=== PATIENT | female | born 1975 | race Caucasian/White ===

== ENCOUNTER 2021-07-30 01:10 | Inpatient (IN) ==
[2021-07-30] MEDS ORDERED: 0.9 % Sodium Chloride 1,000 ML IV ONE ×2 (01:16→03:43)
[2021-07-30] MEDS ORDERED: *HR* FentaNYL (PF) 100 MCG/2 ML VIAL IVP ONE ×3 (01:16→03:20)
[2021-07-30] MEDS ORDERED: Ondansetron 4 MG/2 ML VIAL IVP ONE (01:16)
[2021-07-30] MEDS ORDERED: Tdap (Boostrix) Vaccine 0.5 ML SYRINGE IM ONE (01:18)
[2021-07-30] MEDS ORDERED: CeFAZolin 2 GM/100 ML BAG IVPB ONE (01:22)
[2021-07-30 02:33] LABS: Basophils # 0.1 K/mcL (0.0-0.2); Basophils % 0.4 %; Eosinophils % 0.1 %; Hematocrit 38.1 % (35.3-44.9); Hemoglobin 12.5 g/dL (11.5-15.4); Immature Granulocytes % 0.6 % (0-4); Lymphocytes # 2.3 K/mcL (0.6-4.6); Lymphocytes % 16.7 %; Mean Corpuscular HGB Conc 32.8 g/dL (31.6-35.5); Mean Corpuscular Hemoglobin 29.2 pg (28.0-33.3); Monocytes # 0.9 K/mcL (0.0-1.3); Monocytes % 6.7 %; Neutrophils # 10.4 K/mcL (1.6-8.9); Platelet Count 344 K/mcL (140-400); Red Blood Count 4.28 M/mcL (3.82-4.97); Segmented Neutrophils % 75.5 %; White Blood Count 13.7 K/mcL (4.3-11.1)
[2021-07-30 02:44] LABS: Activated Partial Thrombo Time 27.7 Seconds (26.0-36.0)
[2021-07-30 02:50] LABS: Alanine Aminotransferase 12 Units/L (7-52); Albumin 3.8 g/dL (3.5-5.7); Albumin/Globulin Ratio 1.3 (1.1-2.2); Alkaline Phosphatase 56 Units/L (34-104); Aspartate Amino Transferase 15 Units/L (13-39); BUN/Creatinine Ratio 15 (6-26); Bilirubin,Total 0.4 mg/dL (0.3-1.0); Blood Urea Nitrogen 13 mg/dL (6-20); Calcium 8.7 mg/dL (8.6-10.3); Carbon Dioxide 22 mEq/L (23-29); Chloride 104 mEq/L (98-107); Glucose 99 mg/dL (70-105); Osmolality,Calculated 286 (280-300); Potassium 3.1 mEq/L (3.5-5.1); Sodium 138 mEq/L (136-145); Total Protein 6.8 g/dL (6.4-8.9); eGFR For African Americans > 60 (> 60); eGFR For Non-African Americans > 60 (> 60)
[2021-07-30] MEDS ORDERED: *HR* HYDROmorphone (PF) 1 MG/ML SYRINGE IVP ONE ×2 (03:42→09:55)
[2021-07-30] MEDS ORDERED: 0.9 % Sodium Chloride 1,000 ML ONE (03:44)
[2021-07-30] MEDS ORDERED: Naloxone 0.4 MG/ML INJ IVP PRN (04:34)
[2021-07-30] MEDS ORDERED: Ondansetron 4 MG/2 ML VIAL IVP PRN (04:34)
[2021-07-30] MEDS ORDERED: D5% in Water 1,000 ML IVC PRN (04:37)
[2021-07-30] MEDS ORDERED: Dextrose 4 GM Chewable Tablets PO PRN ×2 (04:37)
[2021-07-30] MEDS ORDERED: *HR* Dextrose 50 % in Water (Syg) 50 ML SYRINGE IVP PRN (04:37)
[2021-07-30 05:06] LABS: INR 1.1; Prothrombin Time 12.6 Seconds (9.4-12.1)
[2021-07-30] MEDS: *HR* HYDROmorphone (PF) 1 MG/ML SYRINGE IVP PRN ×2 (05:47→19:05)
[2021-07-30] MEDS: 0.9 % Sodium Chloride 1,000 ML IVC SCH ×2 (06:01→17:20)
[2021-07-30] MEDS: Ringers Solution, Lactated 1,000 ML IVC SCH (09:56)
[2021-07-30] MEDS ORDERED: Povidone-Iodine 45 ML, Sodium Chloride IRRigation 1,000 ML IR ONE (10:00)
[2021-07-30] MEDS ORDERED: TOTAL JOINT MIXTURE (100ML) INTRAART ONE (10:00)
[2021-07-30] MEDS ORDERED: Lidocaine HCL 4 ML Topical Solution (Laryng-O-Jet Kit Sterile Pak) TP ONE (10:06)
[2021-07-30] MEDS ORDERED: *HR* Midazolam HCl 2 MG/2 ML VIAL ONE (10:07)
[2021-07-30] MEDS ORDERED: *HR* Propofol 200 MG/20 ML VIAL IVP ONE ×2 (10:07→14:14)
[2021-07-30] MEDS ORDERED: *HR* FentaNYL (PF) 100 MCG/2 ML VIAL ONE (10:07)
[2021-07-30] MEDS ORDERED: Ondansetron 4 MG/2 ML VIAL ONE (10:09)
[2021-07-30] MEDS ORDERED: *HR* Rocuronium Bromide 50 MG/5 ML VIAL ONE (10:09)
[2021-07-30] MEDS ORDERED: Lidocaine -MPF 2% 2 ML VIAL ONE (10:09)
[2021-07-30] MEDS ORDERED: *HR* Succinylcholine 200 MG/10 ML VIAL IVP ONE (10:09)
[2021-07-30] MEDS ORDERED: Promethazine 6.25 MG in Water for inj. (sterile) 20 ML IVPB PRN (10:10)
[2021-07-30] MEDS ORDERED: *HR* Meperidine 25 MG/ML SYRINGE IVP PRN (10:10)
[2021-07-30] MEDS ORDERED: Albuterol 2.5 MG/3 ML NEBULIZER IH PRN (10:10)
[2021-07-30] MEDS ORDERED: *HR* HYDROmorphone PF 0.5 MG/0.5 ML SYRINGE IVP PRN (10:10)
[2021-07-30] MEDS ORDERED: Ketamine HCL *QUVA* 50mg (1mL) SYRINGE ONE (10:20)
[2021-07-30] MEDS ORDERED: Acetaminophen IV 1,000 MG/100 ML BAG IVPB ONE (10:20)
[2021-07-30] MEDS ORDERED: Tranexamic Acid 1,000 MG/10 ML VIAL ONE (10:22)
[2021-07-30] MEDS ORDERED: *HR* HYDROMORPHONE 2 MG/ML VIAL ONE ×3 (10:48→13:45)
[2021-07-30] MEDS ORDERED: Sugammadex Sodium 200 MG/2 ML VIAL IV ONE (11:03)
[2021-07-30] MEDS ORDERED: Ketorolac 30 MG/ML VIAL ONE (13:40)
[2021-07-30] MEDS: Insulin LISPRO 300 UNITS/3 ML VIAL SUBQ SCH ×3 (14:36→17:21)
[2021-07-30] MEDS: *HR* Enoxaparin 40 MG/0.4 ML SYRINGE SQ SCH (14:44)
[2021-07-30] MEDS: CeFAZolin 2 GM/100 ML BAG IVPB SCH (17:20)
[2021-07-30] MEDS ORDERED: *HR* OxyCODONE Immed Rel 5 MG TABLET PO PRN (21:46)
[2021-07-30] MEDS: *HR* OxyCODONE Immed Rel 5 MG TABLET PO PRN (22:03)
[2021-07-31] MEDS: *HR* HYDROmorphone (PF) 1 MG/ML SYRINGE IVP PRN ×5 (00:15→22:14)
[2021-07-31] MEDS: CeFAZolin 2 GM/100 ML BAG IVPB SCH ×4 (00:17→23:32)
[2021-07-31] MEDS: *HR* OxyCODONE Immed Rel 5 MG TABLET PO PRN ×4 (04:38→21:05)
[2021-07-31 07:26] LABS: Red Cell Distribution Width 13.1 % (11.5-14.5)
[2021-07-31 07:28] LABS: Basophils % 0.2 %; Red Blood Count 3.64 M/mcL (3.82-4.97)
[2021-07-31 07:37] LABS: Hemoglobin 10.5 g/dL (11.5-15.4); Mean Corpuscular Hemoglobin 28.8 pg (28.0-33.3)
[2021-07-31 07:38] LABS: Eosinophils # 0.1 K/mcL (0.0-0.6); Eosinophils % 0.5 %; Hematocrit 31.7 % (35.3-44.9); Immature Granulocytes % 0.4 % (0-4); Immature Platelets 2.9 % (1.1-6.1); Lymphocytes # 3.2 K/mcL (0.6-4.6); Lymphocytes % 24.3 %; Mean Corpuscular HGB Conc 33.1 g/dL (31.6-35.5); Mean Corpuscular Volume 87.1 fL (83.0-100.0); Mean Platelet Volume 10.2 fL (9.4-12.4); Monocytes # 1.2 K/mcL (0.0-1.3); Monocytes % 9.3 %; Platelet Count 217 K/mcL (140-400); Segmented Neutrophils % 65.3 %; White Blood Count 13.1 K/mcL (4.3-11.1)
[2021-07-31 07:40] LABS: Neutrophils # 8.6 K/mcL (1.6-8.9)
[2021-07-31 08:12] LABS: Estimated Average Glucose 108 mg/dl; Hemoglobin A1C 5.4 %
[2021-07-31] MEDS: Insulin LISPRO 300 UNITS/3 ML VIAL SUBQ SCH ×3 (08:29→17:55)
[2021-07-31 08:36] LABS: BUN/Creatinine Ratio 25 (6-26); Blood Urea Nitrogen 15 mg/dL (6-20); Calcium 8.6 mg/dL (8.6-10.3); Carbon Dioxide 24 mEq/L (23-29); Chloride 104 mEq/L (98-107); Glucose 109 mg/dL (70-105); Magnesium 1.6 mg/dL (1.6-2.6); Osmolality,Calculated 281 (280-300); Potassium 3.7 mEq/L (3.5-5.1); Sodium 135 mEq/L (136-145); eGFR For African Americans > 60 (> 60); eGFR For Non-African Americans > 60 (> 60)
[2021-07-31] MEDS: *HR* Enoxaparin 40 MG/0.4 ML SYRINGE SQ SCH (08:47)
[2021-07-31] MEDS ORDERED: Ketorolac 30 MG/ML VIAL IVP ONE (10:09)
[2021-07-31] MEDS: tiZANidine 4 MG TABLET PO SCH ×3 (10:19→20:03)
[2021-07-31] MEDS ORDERED: *HR* OxyCODONE/APAP 10/325 TABLET PO PRN (10:50)
[2021-07-31] MEDS ORDERED: Acetaminophen IV 1,000 MG/100 ML BAG IVPB SCH (12:00)
[2021-07-31] MEDS: Acetaminophen IV 1,000 MG/100 ML BAG IVPB SCH ×2 (12:10→20:04)
[2021-07-31] MEDS: Gabapentin 400 MG CAPSULE PO SCH ×2 (15:01→20:03)
[2021-07-31] MEDS: Ketorolac 30 MG/ML VIAL IVP SCH ×2 (17:54→23:34)
[2021-08-01] MEDS: *HR* HYDROmorphone (PF) 1 MG/ML SYRINGE IVP PRN ×3 (02:21→16:33)
[2021-08-01] MEDS: *HR* OxyCODONE Immed Rel 5 MG TABLET PO PRN ×3 (03:12→20:51)
[2021-08-01] MEDS: Acetaminophen IV 1,000 MG/100 ML BAG IVPB SCH ×3 (04:07→20:52)
[2021-08-01] MEDS: Ringers Solution, Lactated 1,000 ML IVC SCH (04:09)
[2021-08-01 05:07] LABS: Basophils % 0.3 %; Eosinophils # 0.3 K/mcL (0.0-0.6); Eosinophils % 3.9 %; Hematocrit 31.9 % (35.3-44.9); Hemoglobin 10.4 g/dL (11.5-15.4); Immature Granulocytes % 0.1 % (0-4); Lymphocytes # 2.8 K/mcL (0.6-4.6); Lymphocytes % 35.9 %; Mean Corpuscular HGB Conc 32.6 g/dL (31.6-35.5); Mean Corpuscular Hemoglobin 29.2 pg (28.0-33.3); Mean Corpuscular Volume 89.6 fL (83.0-100.0); Mean Platelet Volume 10.4 fL (9.4-12.4); Monocytes # 0.9 K/mcL (0.0-1.3); Monocytes % 10.9 %; Neutrophils # 3.8 K/mcL (1.6-8.9); Platelet Count 231 K/mcL (140-400); Red Blood Count 3.56 M/mcL (3.82-4.97); Red Cell Distribution Width 12.9 % (11.5-14.5); Segmented Neutrophils % 48.9 %; White Blood Count 7.8 K/mcL (4.3-11.1)
[2021-08-01 05:26] LABS: Alanine Aminotransferase 58 Units/L (7-52); Albumin 3.1 g/dL (3.5-5.7); Albumin/Globulin Ratio 1.2 (1.1-2.2); Alkaline Phosphatase 140 Units/L (34-104); Aspartate Amino Transferase 202 Units/L (13-39); BUN/Creatinine Ratio 18 (6-26); Bilirubin,Direct 0.6 mg/dL (0.0-0.2); Bilirubin,Indirect 0.7 mg/dL (0.0-1.0); Bilirubin,Total 1.3 mg/dL (0.3-1.0); Blood Urea Nitrogen 10 mg/dL (6-20); Calcium 8.2 mg/dL (8.6-10.3); Carbon Dioxide 25 mEq/L (23-29); Chloride 104 mEq/L (98-107); Globulin 2.6 g/dL (2.4-3.5); Glucose 100 mg/dL (70-105); Magnesium 1.7 mg/dL (1.6-2.6); Osmolality,Calculated 281 (280-300); Potassium 3.6 mEq/L (3.5-5.1); Sodium 136 mEq/L (136-145); Total Protein 5.7 g/dL (6.4-8.9); eGFR For African Americans > 60 (> 60); eGFR For Non-African Americans > 60 (> 60)
[2021-08-01] MEDS: Ketorolac 30 MG/ML VIAL IVP SCH ×4 (06:24→23:34)
[2021-08-01] MEDS: tiZANidine 4 MG TABLET PO SCH ×3 (08:05→20:51)
[2021-08-01] MEDS: Gabapentin 400 MG CAPSULE PO SCH ×3 (08:05→20:52)
[2021-08-01] MEDS: *HR* Enoxaparin 40 MG/0.4 ML SYRINGE SQ SCH (08:06)
[2021-08-01] MEDS: Insulin LISPRO 300 UNITS/3 ML VIAL SUBQ SCH ×3 (08:07→16:32)
[2021-08-01] MEDS: CeFAZolin 2 GM/100 ML BAG IVPB SCH ×3 (08:17→23:33)
[2021-08-02] MEDS: *HR* HYDROmorphone (PF) 1 MG/ML SYRINGE IVP PRN ×3 (01:57→16:00)
[2021-08-02] MEDS: Acetaminophen IV 1,000 MG/100 ML BAG IVPB SCH ×3 (04:16→21:56)
[2021-08-02 04:39] LABS: Alanine Aminotransferase 25 Units/L (7-52); Albumin 2.9 g/dL (3.5-5.7); Albumin/Globulin Ratio 1.1 (1.1-2.2); Alkaline Phosphatase 103 Units/L (34-104); Aspartate Amino Transferase 33 Units/L (13-39); BUN/Creatinine Ratio 18 (6-26); Bilirubin,Indirect 0.4 mg/dL (0.0-1.0); Bilirubin,Total 0.4 mg/dL (0.3-1.0); Blood Urea Nitrogen 10 mg/dL (6-20); Calcium 8.3 mg/dL (8.6-10.3); Carbon Dioxide 25 mEq/L (23-29); Chloride 106 mEq/L (98-107); Globulin 2.6 g/dL (2.4-3.5); Glucose 94 mg/dL (70-105); Magnesium 1.7 mg/dL (1.6-2.6); Osmolality,Calculated 283 (280-300); Potassium 3.8 mEq/L (3.5-5.1); Sodium 137 mEq/L (136-145); Total Protein 5.5 g/dL (6.4-8.9); eGFR For African Americans > 60 (> 60); eGFR For Non-African Americans > 60 (> 60)
[2021-08-02 04:41] LABS: Basophils % 0.4 %; Eosinophils # 0.5 K/mcL (0.0-0.6); Eosinophils % 5.3 %; Hematocrit 30.7 % (35.3-44.9); Immature Granulocytes % 0.3 % (0-4); Lymphocytes # 2.5 K/mcL (0.6-4.6); Lymphocytes % 27.7 %; Mean Corpuscular HGB Conc 32.6 g/dL (31.6-35.5); Mean Platelet Volume 10.9 fL (9.4-12.4); Monocytes # 0.8 K/mcL (0.0-1.3); Monocytes % 9.4 %; Neutrophils # 5.1 K/mcL (1.6-8.9); Platelet Count 240 K/mcL (140-400); Red Blood Count 3.45 M/mcL (3.82-4.97); Red Cell Distribution Width 12.8 % (11.5-14.5); Segmented Neutrophils % 56.9 %; White Blood Count 8.9 K/mcL (4.3-11.1)
[2021-08-02] MEDS: Ketorolac 30 MG/ML VIAL IVP SCH ×3 (06:37→19:18)
[2021-08-02] MEDS: Insulin LISPRO 300 UNITS/3 ML VIAL SUBQ SCH ×3 (07:36→19:55)
[2021-08-02] MEDS: tiZANidine 4 MG TABLET PO SCH ×3 (07:46→20:53)
[2021-08-02] MEDS: Gabapentin 400 MG CAPSULE PO SCH (07:46)
[2021-08-02] MEDS: *HR* Enoxaparin 40 MG/0.4 ML SYRINGE SQ SCH (07:46)
[2021-08-02] MEDS: Ringers Solution, Lactated 1,000 ML IVC SCH ×2 (07:47→11:16)
[2021-08-02] MEDS: CeFAZolin 2 GM/100 ML BAG IVPB SCH ×2 (07:51→16:36)
[2021-08-02] MEDS: *HR* OxyCODONE Immed Rel 5 MG TABLET PO PRN ×2 (09:09→21:10)
[2021-08-02] MEDS: Gabapentin 300 MG CAPSULE PO SCH ×2 (14:31→20:53)
[2021-08-03] MEDS: *HR* HYDROmorphone (PF) 1 MG/ML SYRINGE IVP PRN ×3 (00:01→14:48)
[2021-08-03] MEDS: CeFAZolin 2 GM/100 ML BAG IVPB SCH ×2 (00:02→11:39)
[2021-08-03] MEDS: Ketorolac 30 MG/ML VIAL IVP SCH ×4 (00:02→18:25)
[2021-08-03] MEDS: Acetaminophen IV 1,000 MG/100 ML BAG IVPB SCH ×3 (04:01→19:31)
[2021-08-03] MEDS: Insulin LISPRO 300 UNITS/3 ML VIAL SUBQ SCH ×3 (07:40→17:56)
[2021-08-03 07:42] LABS: Basophils % 0.4 %; Eosinophils # 0.4 K/mcL (0.0-0.6); Eosinophils % 5.6 %; Hematocrit 29.1 % (35.3-44.9); Hemoglobin 9.7 g/dL (11.5-15.4); Immature Granulocytes % 0.4 % (0-4); Lymphocytes # 2.2 K/mcL (0.6-4.6); Lymphocytes % 28.9 %; Mean Corpuscular HGB Conc 33.3 g/dL (31.6-35.5); Mean Corpuscular Hemoglobin 29.4 pg (28.0-33.3); Mean Corpuscular Volume 88.2 fL (83.0-100.0); Mean Platelet Volume 10.6 fL (9.4-12.4); Monocytes # 0.7 K/mcL (0.0-1.3); Neutrophils # 4.1 K/mcL (1.6-8.9); Platelet Count 278 K/mcL (140-400); Red Cell Distribution Width 12.6 % (11.5-14.5); Segmented Neutrophils % 55.7 %; White Blood Count 7.4 K/mcL (4.3-11.1)
[2021-08-03 08:03] LABS: BUN/Creatinine Ratio 18 (6-26); Blood Urea Nitrogen 10 mg/dL (6-20); Calcium 8.5 mg/dL (8.6-10.3); Carbon Dioxide 26 mEq/L (23-29); Chloride 105 mEq/L (98-107); Glucose 94 mg/dL (70-105); Magnesium 1.8 mg/dL (1.6-2.6); Osmolality,Calculated 285 (280-300); Potassium 3.5 mEq/L (3.5-5.1); Sodium 138 mEq/L (136-145); eGFR For African Americans > 60 (> 60); eGFR For Non-African Americans > 60 (> 60)
[2021-08-03 08:06] LABS: Albumin/Globulin Ratio 1.3 (1.1-2.2); Bilirubin,Indirect 0.3 mg/dL (0.0-1.0); Bilirubin,Total 0.3 mg/dL (0.3-1.0); Globulin 2.4 g/dL (2.4-3.5); Total Protein 5.4 g/dL (6.4-8.9)
[2021-08-03] MEDS: Gabapentin 300 MG CAPSULE PO SCH ×3 (08:35→19:30)
[2021-08-03] MEDS: *HR* OxyCODONE Immed Rel 5 MG TABLET PO PRN ×2 (08:35→19:30)
[2021-08-03] MEDS: tiZANidine 4 MG TABLET PO SCH ×3 (08:35→19:30)
[2021-08-03] MEDS: *HR* Enoxaparin 40 MG/0.4 ML SYRINGE SQ SCH (08:42)
[2021-08-03] MEDS: CeFAZolin 2,000 MG/120 ML BAG IVPB SCH (19:35)
[2021-08-04] MEDS: Ketorolac 30 MG/ML VIAL IVP SCH ×2 (00:06→06:00)
[2021-08-04] MEDS: *HR* HYDROmorphone (PF) 1 MG/ML SYRINGE IVP PRN (00:06)
[2021-08-04] MEDS: *HR* OxyCODONE Immed Rel 5 MG TABLET PO PRN ×2 (04:36→11:06)
[2021-08-04] MEDS: CeFAZolin 2,000 MG/120 ML BAG IVPB SCH (04:37)
[2021-08-04] MEDS: Acetaminophen IV 1,000 MG/100 ML BAG IVPB SCH (04:37)
[2021-08-04 07:52] VITALS: PULSE 73
[2021-08-04] MEDS: Insulin LISPRO 300 UNITS/3 ML VIAL SUBQ SCH (08:23)
[2021-08-04] MEDS: Gabapentin 300 MG CAPSULE PO SCH (08:36)
[2021-08-04] MEDS: tiZANidine 4 MG TABLET PO SCH (08:36)
[2021-08-04] MEDS: *HR* Enoxaparin 40 MG/0.4 ML SYRINGE SQ SCH (08:37)
[2021-08-04 10:24] LABS: Influenza A PCR Negative (Negative); Influenza B PCR Negative (Negative); Resp. Syncytial Virus PCR Negative (Negative)
[2021-08-04 10:48] LABS: SARS-CoV-2 by PCR (In House) Negative (Negative)
[2021-08-04 11:38] VITALS: BP 149/84; TEMP 97.6; O2SAT 99
== END 2021-08-04 12:37 | disposition other institution (70) | DRG 313 ==
LOC: 4WAOSI 01:10 → EMEROOARM 01:10 → SUATTDRO 04:16 → 4WAOSI 05:41 → SUATTDRO 08-01 15:06
PROVIDERS: ADMIT Internal Medicine; ATTEND Internal Medicine

== ENCOUNTER 2021-08-05 17:59 | Observation (INO) ==
[2021-08-05] MEDS ORDERED: *HR* OxyCODONE Immed Rel 5 MG TABLET PO STA (20:19)
[2021-08-05 20:39] LABS: Basophils # 0.1 K/mcL (0.0-0.2); Basophils % 0.5 %; Eosinophils # 0.4 K/mcL (0.0-0.6); Eosinophils % 4.1 %; Hemoglobin 10.1 g/dL (11.5-15.4); Immature Granulocytes % 0.4 % (0-4); Lymphocytes # 3.7 K/mcL (0.6-4.6); Lymphocytes % 39.1 %; Mean Corpuscular HGB Conc 32.6 g/dL (31.6-35.5); Mean Corpuscular Hemoglobin 29.8 pg (28.0-33.3); Mean Corpuscular Volume 91.4 fL (83.0-100.0); Mean Platelet Volume 10.2 fL (9.4-12.4); Monocytes # 0.9 K/mcL (0.0-1.3); Monocytes % 8.9 %; Neutrophils # 4.5 K/mcL (1.6-8.9); Platelet Count 328 K/mcL (140-400); Red Blood Count 3.39 M/mcL (3.82-4.97); Red Cell Distribution Width 12.8 % (11.5-14.5); White Blood Count 9.6 K/mcL (4.3-11.1)
[2021-08-05 21:00] LABS: Alanine Aminotransferase 6 Units/L (7-52); Albumin 3.3 g/dL (3.5-5.7); Albumin/Globulin Ratio 1.3 (1.1-2.2); Alkaline Phosphatase 77 Units/L (34-104); Aspartate Amino Transferase 13 Units/L (13-39); BUN/Creatinine Ratio 24 (6-26); Bilirubin,Total 0.3 mg/dL (0.3-1.0); Blood Urea Nitrogen 16 mg/dL (6-20); Calcium 8.8 mg/dL (8.6-10.3); Carbon Dioxide 30 mEq/L (23-29); Chloride 103 mEq/L (98-107); Creatine Kinase 39 Units/L (30-223); Globulin 2.5 g/dL (2.4-3.5); Glucose 90 mg/dL (70-105); Osmolality,Calculated 287 (280-300); Potassium 3.8 mEq/L (3.5-5.1); Sodium 138 mEq/L (136-145); Total Protein 5.8 g/dL (6.4-8.9); eGFR For African Americans > 60 (> 60); eGFR For Non-African Americans > 60 (> 60)
[2021-08-05] MEDS ORDERED: Melatonin 3 MG TABLET PO PRN (21:03)
[2021-08-05] MEDS ORDERED: Acetaminophen 325 MG TABLET PO PRN (21:03)
[2021-08-05] MEDS ORDERED: Ondansetron ODT 4 MG TAB.RAPDIS SL PRN (21:03)
[2021-08-05] MEDS ORDERED: Naloxone 0.4 MG/ML INJ IVP PRN (21:03)
[2021-08-05] MEDS ORDERED: *HR* Dextrose 50 % in Water (Syg) 50 ML SYRINGE IVP PRN (21:07)
[2021-08-05] MEDS ORDERED: D5% in Water 1,000 ML IVC PRN (21:07)
[2021-08-05] MEDS ORDERED: Dextrose 4 GM Chewable Tablets PO PRN ×2 (21:07)
[2021-08-05] MEDS: Insulin LISPRO 300 UNITS/3 ML VIAL SUBQ SCH (21:59)
[2021-08-05] MEDS ORDERED: *HR* HYDROmorphone (PF) 1 MG/ML SYRINGE IVP ONE (22:02)
[2021-08-05] MEDS ORDERED: tiZANidine 4 MG TABLET PO PRN (22:08)
[2021-08-05] MEDS: Gabapentin 300 MG CAPSULE PO SCH (22:26)
[2021-08-06] MEDS: *HR* OxyCODONE Immed Rel 5 MG TABLET PO PRN ×4 (00:01→19:57)
[2021-08-06 07:00] LABS: Hematocrit 30.3 % (35.3-44.9); Hemoglobin 9.7 g/dL (11.5-15.4); Mean Corpuscular Hemoglobin 28.5 pg (28.0-33.3); Mean Corpuscular Volume 89.1 fL (83.0-100.0); Mean Platelet Volume 10.1 fL (9.4-12.4); Platelet Count 327 K/mcL (140-400); Red Cell Distribution Width 12.8 % (11.5-14.5); White Blood Count 8.8 K/mcL (4.3-11.1)
[2021-08-06 07:21] LABS: BUN/Creatinine Ratio 21 (6-26); Blood Urea Nitrogen 12 mg/dL (6-20); Calcium 8.8 mg/dL (8.6-10.3); Carbon Dioxide 28 mEq/L (23-29); Chloride 103 mEq/L (98-107); Chol/HDL Ratio 4.3 (0-4.9); Cholesterol 142 mg/dL (< 200); Glucose 97 mg/dL (70-105); HDL Cholesterol 33 mg/dL (40-59); LDL Cholesterol,Calculated 82 mg/dL (< 100); Magnesium 1.8 mg/dL (1.6-2.6); Osmolality,Calculated 288 (280-300); Phosphorous 4.2 mg/dL (2.7-4.5); Potassium 3.8 mEq/L (3.5-5.1); Sodium 139 mEq/L (136-145); Triglycerides 137 mg/dL (< 150); eGFR For African Americans > 60 (> 60); eGFR For Non-African Americans > 60 (> 60)
[2021-08-06] MEDS: Insulin LISPRO 300 UNITS/3 ML VIAL SUBQ SCH ×4 (09:32→19:57)
[2021-08-06] MEDS: *HR* HYDROcodone/Acet 5/325 mg TABLET PO PRN ×2 (09:37→16:47)
[2021-08-06] MEDS: Gabapentin 300 MG CAPSULE PO SCH ×3 (09:37→19:57)
[2021-08-06] MEDS: tiZANidine 4 MG TABLET PO SCH ×3 (11:51→19:57)
[2021-08-07] MEDS: *HR* HYDROcodone/Acet 5/325 mg TABLET PO PRN ×4 (00:38→20:18)
[2021-08-07] MEDS: *HR* OxyCODONE Immed Rel 5 MG TABLET PO PRN ×3 (04:17→18:16)
[2021-08-07] MEDS: Insulin LISPRO 300 UNITS/3 ML VIAL SUBQ SCH ×4 (08:02→20:19)
[2021-08-07] MEDS: Gabapentin 300 MG CAPSULE PO SCH ×3 (08:09→20:18)
[2021-08-07] MEDS: tiZANidine 4 MG TABLET PO SCH ×4 (08:10→20:18)
[2021-08-07] MEDS: Ketorolac 30 MG/ML VIAL IVP PRN (23:04)
[2021-08-08] MEDS: *HR* OxyCODONE Immed Rel 5 MG TABLET PO PRN ×3 (00:44→14:57)
[2021-08-08] MEDS: *HR* HYDROcodone/Acet 5/325 mg TABLET PO PRN ×2 (03:55→12:13)
[2021-08-08] MEDS: Ketorolac 30 MG/ML VIAL IVP PRN (06:31)
[2021-08-08] MEDS: Insulin LISPRO 300 UNITS/3 ML VIAL SUBQ SCH ×3 (07:39→16:27)
[2021-08-08] MEDS: Gabapentin 300 MG CAPSULE PO SCH ×2 (08:26→14:46)
[2021-08-08] MEDS: tiZANidine 4 MG TABLET PO SCH ×3 (08:26→17:25)
[2021-08-08] MEDS ORDERED: *HR* Enoxaparin 40 MG/0.4 ML SYRINGE SQ ONE (09:26)
[2021-08-08 11:26] VITALS: TEMP 98
[2021-08-08 16:19] VITALS: BP 134/66; PULSE 77; O2SAT 99
== END 2021-08-08 19:10 | disposition home health service (06) ==
LOC: 4WAOSI 17:59 → EMEROOARM 17:59 → SUATTDRO 21:05 → 4WAOSI 21:29
PROVIDERS: ADMIT Family Medicine; ATTEND Internal Medicine